=== PATIENT | male | born 1950 | race Caucasian/White ===

== ENCOUNTER 2022-05-18 09:17 | Day surgery (SDC) | payer BC ==
[~2022-05-18] VITALS: Ht 175.3 cm; Wt 96.8 kg
[2022-05-18] MEDS ORDERED: COZAAR100 MG PO (10:19)
[2022-05-18] MEDS ORDERED: ZOCOR 20MG20 MG PO (10:19)
[2022-05-18] MEDS ORDERED: PROTONIX 40MG T40 MG PO (10:20)
[2022-05-18 11:15] VITALS: BP 117/83; PULSE 57
--- NOTE | 2022-05-18 11:15 | NUR ---
PATIENT RETURNS TO [facility] PER CART AND IS AWAKE AND ALERT. TRANSFERS FROM CART TO RECLINER WITH ONE PERSON ASSIST. IV FLUIDS INFUSING. SON IN ROOM. CALL LIGHT IN REACH. TAKING ORANGE JUICE.
[2022-05-18 11:30] VITALS: BP 129/85; PULSE 53
--- NOTE | 2022-05-18 11:30 | NUR ---
DR. GAMEZ IN THE ROOM AND TALKS WITH THE PATIENT. ALL QUESTIONS ANSWERED.
[2022-05-18 11:46] VITALS: BP 124/58; PULSE 49
--- NOTE | 2022-05-18 11:46 | NUR ---
IV DISCONTINUED AND SITE IS FREE OF REDNESS OR SWELLING. DISMISSAL INSTRUCTIONS GIVEN. PATIENT DRESSED.
--- NOTE | 2022-05-18 11:48 | NUR ---
PATIENT DISCHARGED TO HOME DRIVEN BY SON AND TAKEN TO CAR PER WHEELCHAIR AND ASSISTED INTO VEHICLE WITH INSTRUCTIONS IN HAND.
[2022-05-18 16:45] VITALS: BP 129/85; PULSE 59; TEMP 97.1
== END 2022-05-18 11:48 | disposition home or self-care (01) ==
LOC: SDCO 09:17
DX: K44.9 Diaphragmatic hernia without obstruction or gangrene (principal); K29.50 Unspecified chronic gastritis without bleeding; K31.7 Polyp of stomach and duodenum; D50.9 Iron deficiency anemia, unspecified; D12.6 Benign neoplasm of colon, unspecified
CPT/HCPCS: J2704; J7120